=== PATIENT | female | born 1985 | race Caucasian/White ===

== ENCOUNTER 2017-04-24 20:26 | Emergency (ER) | payer MEDICAID ==
[~2017-04-24] VITALS: Ht 152.4 cm; Wt 53.0 kg
[2017-04-24 21:27] VITALS: BP 100/59
== END 2017-04-25 00:05 | disposition left against medical advice (07) ==
LOC: ER 21:30
DX: Z53.21 Procedure and treatment not carried out due to patient leaving prior to being seen by health care provider (principal)
CPT/HCPCS: 81025